=== PATIENT | female | born 1985 | race Caucasian/White ===

== ENCOUNTER 2016-10-29 18:07 | Emergency (ER) | payer SELFPAY ==
[~2016-10-29] VITALS: Ht 149.9 cm; Wt 43.0 kg
[2016-10-29 18:11] VITALS: BP 102/60
[2016-10-29] MEDS ORDERED: WARF4TAB40 PO (18:16)
== END 2016-10-29 19:15 | disposition left against medical advice (07) ==
LOC: ER 19:13
DX: R07.89 Other chest pain (principal); Z53.21 Procedure and treatment not carried out due to patient leaving prior to being seen by health care provider
CPT/HCPCS: 93005